=== PATIENT | female | born 1995 | race Hispanic/Latino ===

== ENCOUNTER 2021-01-27 09:35 | Outpatient (CLI) | payer BC, OTHER ==
[2021-01-27 20:11] LABS: SARS-CoV-2 PCR by NAA Not Detected (NotDetected)
== END 2021-01-27 09:36 | disposition home or self-care (01) ==
LOC: CSHLAB 09:35
PROVIDERS: ATTEND Obstetrics & Gynecology
DX: Z20.822 Contact with and (suspected) exposure to COVID-19 (principal)
CPT/HCPCS: 87635; U0003; U0005

== ENCOUNTER 2021-01-31 05:06 | Inpatient (IN) | payer BC, OTHER ==
[2021-01-31] MEDS ORDERED: Famotidine/PF 20 mg/2ml Vial SLOW IVP PRN (05:10)
[2021-01-31] MEDS ORDERED: Butorphanol Tartrate 1 MG/ML VIAL SLOW IVP PRN (05:10)
[2021-01-31] MEDS ORDERED: Bicitra 30 ML UDCUP PO PRN (05:10)
[2021-01-31] MEDS ORDERED: Ondansetron PF 4 MG/2 ML Vial IVP PRN ×3 (05:10→21:46)
[2021-01-31] MEDS ORDERED: Promethazine HCl 25 MG/ML VIAL IM PRN ×3 (05:10→21:46)
[2021-01-31] MEDS ORDERED: CEFAZOLIN 2 GM in Premix Bag 1 BAG IVPB SCH (05:10)
[2021-01-31] MEDS ORDERED: hydrALAZINE 20 MG/ML VIAL SLOW IVP PRN ×2 (05:10→21:46)
[2021-01-31] MEDS ORDERED: Lactated Ringer's 1,000 ML IV SCH (05:10)
[2021-01-31 05:36] VITALS: BMI 47.8
[2021-01-31] MEDS: Lactated Ringer's 1,000 ML IV SCH ×2 (05:45→09:14)
[2021-01-31 06:02] LABS: Hemoglobin 11.7 g/dL (12.0-15.5); Mean Corpuscular HGB CONC 33.3 g/dL (32.0-36.0); Mean Corpuscular Hemoglobin 27.1 pg (27.0-33.0); Mean Corpuscular Volume 81.3 fl (81.6-98.3); Platelet Count 304 10x3/uL (150-450); RBC Distribution Width 14.4 % (11.5-14.5); Red Blood Cell (RBC) Count 4.32 10x6/uL (3.90-5.03); White Blood Cell (WBC) Count 8.4 10x3/uL (3.5-10.5)
[2021-01-31 06:40] LABS: Hep B Surf Ag Non-Reactive S/CO (NonReactive); Syphilis Antibody Nonreactive (Nonreactive); Syphilis Antibody Index 0.05 S/CO (<1.00 Non-Reactive)
[2021-01-31 06:43] LABS: HBSAg Index 0.16 S/CO (0-0.99)
[2021-01-31] MEDS ORDERED: Penicillin G Potassium 5 MILL.UNITS VIAL ONE (07:31)
[2021-01-31] MEDS ORDERED: NS w/ Oxytocin 30 units 500 ML ONE (07:31)
[2021-01-31] MEDS ORDERED: Ibuprofen 800 MG TAB PO PRN (07:32)
[2021-01-31] MEDS ORDERED: HYDROcodone/Acetaminophen 5/325 mg Tablet PO PRN ×4 (07:32→21:46)
[2021-01-31] MEDS ORDERED: Lidocaine 1% (PF) 30 ML VIAL SC PRN (07:32)
[2021-01-31] MEDS ORDERED: NS w/ Oxytocin 30 units 500 ML IVPB PRN (07:42)
[2021-01-31] MEDS ORDERED: Penicillin G Potassium 5 MILL.UNITS in Sodium Chloride 0.9% 100 ML IVPB SCH (07:45)
[2021-01-31] MEDS ORDERED: NS w/ Oxytocin 30 units 500 ML IVPB SCH (08:00)
[2021-01-31] MEDS ORDERED: Bupivacaine 0.25% HCL 30 ML VIAL ONE (08:00)
[2021-01-31] MEDS ORDERED: Fentanyl 4 mcg/Bup 0.1% Cadd 100 ML ONE (10:56)
[2021-01-31] MEDS: Penicillin G 2.5 MILL.units 2.5 MILL.UNITS in Premix Bag 1 BAG IVPB SCH ×2 (11:41→15:36)
[2021-01-31] MEDS ORDERED: diphenhydrAMINE 50 MG/ML VIAL IVP PRN (15:05)
[2021-01-31] MEDS ORDERED: Naloxone HCl 0.4 mg/ml Vial IVP PRN ×2 (15:05)
[2021-01-31] MEDS ORDERED: Lactated Ringer's 500 ML IV PRN (15:05)
[2021-01-31] MEDS ORDERED: Acetaminophen 325 MG TAB PO PRN (15:05)
[2021-01-31] MEDS ORDERED: Communication Order-Pharmacy FS SCH (15:15)
[2021-01-31] MEDS ORDERED: Fentanyl 4 mcg/Bupivacaine 0.1% Cassette 100 ML EPIDURAL SCH (15:15)
[2021-01-31] MEDS ORDERED: Hydrocerin (Eucerin) Cream 120 gm Jar TOP PRN (15:50)
[2021-01-31] MEDS ORDERED: ePHEDrine Sulfate 50 MG/10 ML VIAL SLOW IVP PRN (15:51)
[2021-01-31] MEDS ORDERED: Lanolin Ointment 7 GM TUBE TOP PRN (21:46)
[2021-01-31] MEDS ORDERED: Preparation H Ointment 28 GM TUBE PR PRN (21:46)
[2021-01-31] MEDS ORDERED: Milk Of Magnesia 30 ML UDCUP PO PRN (21:46)
[2021-01-31] MEDS ORDERED: Benzocaine-Menthol 82.5 ML CAN TOP PRN (21:46)
[2021-01-31] MEDS ORDERED: Bisacodyl 10 MG SUPP PR PRN (21:46)
[2021-01-31] MEDS ORDERED: Zolpidem Tartrate 5 MG TAB PO PRN (21:46)
[2021-01-31] MEDS ORDERED: diphenhydrAMINE 25 MG CAP PO PRN (21:46)
[2021-01-31] MEDS ORDERED: NS w/ Oxytocin 30 units 500 ML IV SCH (22:00)
[2021-01-31] MEDS: Ibuprofen 800 MG TAB PO SCH (23:10)
[2021-01-31] MEDS: Docusate Calcium (SURFAK) 240 MG CAP PO SCH (23:11)
[2021-02-01] MEDS: Lactated Ringer's 1,000 ML IV SCH (02:34)
[2021-02-01] MEDS: Penicillin G 2.5 MILL.units 2.5 MILL.UNITS in Premix Bag 1 BAG IVPB SCH (02:34)
[2021-02-01] MEDS: Ibuprofen 800 MG TAB PO SCH ×2 (06:35→13:50)
[2021-02-01] MEDS ORDERED: Measles/Mumps/Rubella 10 MCG/0.5 ML VIAL SC ONE (09:00)
[2021-02-01] MEDS ORDERED: Prenatal Vitamin 1 TAB PO SCH ×2 (09:00)
[2021-02-01] MEDS ORDERED: Adacel (T-DAP) 0.5 ML SYRINGE IM ONE (09:00)
[2021-02-01] MEDS: Docusate Calcium (SURFAK) 240 MG CAP PO SCH (09:13)
[2021-02-01 17:22] VITALS: BP 129/73; TEMP 97.3
== END 2021-02-01 20:00 | disposition home or self-care (01) | DRG 806 ==
LOC: CSHLD 05:06 → CSHPP 22:00
PROVIDERS: ADMIT Obstetrics & Gynecology; ATTEND Obstetrics & Gynecology
PROC: 10E0XZZ Delivery of Products of Conception, External Approach (ICD-10-PCS; principal; 2021-01-31)
PROC: 4A0HXCZ Measurement of Products of Conception, Cardiac Rate, External Approach (ICD-10-PCS; 2021-01-31)
DX: O32.1XX0 Maternal care for breech presentation, not applicable or unspecified (principal); O98.82 Other maternal infectious and parasitic diseases complicating childbirth; Z37.0 Single live birth; Z3A.39 39 weeks gestation of pregnancy; B95.1 Streptococcus, group B, as the cause of diseases classified elsewhere
CPT/HCPCS: 36415; 51702; 85027; 86780; 86850; 86900; 86901; 87340; J2540; J2590; J3490; S0020

== ENCOUNTER 2021-02-10 20:08 | Inpatient (IN) | payer OTHER ==
[2021-02-10 21:22] LABS: Hemoglobin 12.4 g/dL (12.0-15.5); Mean Corpuscular HGB CONC 32.7 g/dL (32.0-36.0); Mean Corpuscular Volume 82.6 fl (81.6-98.3); Mean Platelet Volume 10.2 fl (7.4-10.4); Platelet Count 391 10x3/uL (150-450); Red Blood Cell (RBC) Count 4.59 10x6/uL (3.90-5.03); White Blood Cell (WBC) Count 20.6 10x3/uL (3.5-10.5)
[2021-02-10 21:37] LABS: ALT (SGPT) 27 U/L (8-55); AST (SGOT) 20 U/L (5-34); Albumin 3.7 g/dL (3.5-5.0); Alkaline Phosphatase 94 U/L (40-110); Anion Gap 16 mmol/L (10-20); BUN (Urea Nitrogen) 8 mg/dL (7.0-18.7); Bilirubin, Total 0.6 mg/dL (0.2-1.2); Calc. Creatinine Clearance 0 mL/min (70-130); Calcium 8.8 mg/dL (7.8-10.44); Carbon Dioxide 17 mmol/L (22-29); Chloride 105 mmol/L (98-107); Globulin 3.9 g/dL (2.4-3.5); Glucose 129 mg/dL (70-105); Potassium 3.3 mmol/L (3.5-5.1); Protein, Total 7.6 g/dL (6.0-8.3); Sodium 135 mmol/L (136-145)
[2021-02-10 21:40] LABS: Band 10 % (5-11); Lymphocytes 3 % (21-51); Monocytes 7 % (0-10); Neutrophil 77 % (42-75); Reactive Lymphocytes 3 % (0-10)
[2021-02-10 21:42] LABS: MDiff Complete? YES; Manual Diff?? YES
[2021-02-10] MEDS ORDERED: Acetaminophen 500 MG TAB ONE (21:42)
[2021-02-10 21:43] LABS: Platelet Morphology Comment Appears Adequate
[2021-02-10] MEDS ORDERED: Cefepime 2 GM VIAL ONE (21:43)
[2021-02-10 21:44] LABS: Bilirubin Neg (Negative); Blood, Urine 150 (Negative); Clarity Clear (Clear); Glucose, Urine (Dipstick) Normal (Negative); Ketone, Urine Negative (Negative); Leukocyte 25 (Negative); Nitrite Negative (Negative); Protein, Urine (Dipstick) 15 mg/dl (Neg-Trace); Specific Gravity, Urine 1.015 (1.002-1.036)
[2021-02-10] MEDS ORDERED: Acetaminophen 325 MG TAB ONE (21:55)
[2021-02-10 21:57] LABS: Bacteria/HPF 2+ HPF (None Seen); Mucous/LPF Rare LPF (<2+); RBC/HPF 0-3 HPF (0-3); WBC/HPF 0-3 HPF (0-3)
[2021-02-10 22:29] LABS: SARS-CoV-2 NAA Rapid Test Not Detected (NotDetected)
[2021-02-10 23:57] LABS: Lactic Acid 0.8 mmol/L (0.5-2.2)
[2021-02-11] MEDS ORDERED: Senokot S 8.6-50 MG TAB PO PRN (00:11)
[2021-02-11] MEDS ORDERED: Ondansetron ODT 4 MG TAB PO PRN (00:11)
[2021-02-11] MEDS ORDERED: Acetaminophen 325 MG TAB PO PRN (00:11)
[2021-02-11] MEDS ORDERED: Gentamicin 500 MG in Sodium Chloride 0.9% 100 ML IVPB SCH (00:15)
[2021-02-11] MEDS ORDERED: Potassium Chloride 20 MEQ TAB PO SCH (01:30)
[2021-02-11] MEDS ORDERED: Ketorolac Tromethamine 15 MG/ML VIAL ONE (02:22)
[2021-02-11] MEDS: Lactated Ringer's 1,000 ML IV SCH ×3 (03:17→18:31)
[2021-02-11 04:28] VITALS: BMI 44.5
[2021-02-11] MEDS: Ampicillin 2 GM in Sodium Chloride 0.9% 100 ML IVPB SCH ×4 (04:39→23:51)
[2021-02-11] MEDS ORDERED: Lactated Ringer's 1,000 ML IV SCH (08:00)
[2021-02-11 08:16] LABS: #Eosinphils 0.7 10x3/uL (0.0-0.5); #Monocytes 0.6 10x3/uL (0.0-1.1); #Neutrophils 12.6 10x3/uL (1.5-8.4); %Basophils 0.2 % (0.0-2.0); %Eosinophils 4.4 % (0.0-6.0); %Monocytes 4.2 % (0.0-10.0); %Neutrophils 84.6 % (40.0-75.0); Hemoglobin 11.5 g/dL (12.0-15.5); Mean Corpuscular HGB CONC 32.9 g/dL (32.0-36.0); Mean Corpuscular Hemoglobin 27.6 pg (27.0-33.0); Mean Corpuscular Volume 84.1 fl (81.6-98.3); Mean Platelet Volume 10.2 fl (7.4-10.4); Platelet Count 349 10x3/uL (150-450); RBC Distribution Width 15.2 % (11.5-14.5); Red Blood Cell (RBC) Count 4.16 10x6/uL (3.90-5.03); White Blood Cell (WBC) Count 14.9 10x3/uL (3.5-10.5)
[2021-02-11] MEDS: Clindamycin/D5W 900 MG in Premix Bag 1 BAG IVPB SCH ×2 (08:31→16:31)
[2021-02-11] MEDS: Enoxaparin Sodium 40 MG/0.4 ML SYRINGE SC SCH (08:32)
[2021-02-11] MEDS: Ibuprofen 800 MG TAB PO PRN ×2 (08:36→18:32)
[2021-02-11 10:28] LABS: Bilirubin Neg (Negative); Blood, Urine 150 (Negative); Clarity Slightly Cloudy (Clear); Glucose, Urine (Dipstick) Normal (Negative); Ketone, Urine 5 mg/dL (Negative); Leukocyte 25 (Negative); Nitrite Negative (Negative); Protein, Urine (Dipstick) 30 mg/dl (Neg-Trace); Specific Gravity, Urine 1.015 (1.002-1.036)
[2021-02-11 10:30] LABS: Urine Culture Reflex No No
[2021-02-11 11:15] LABS: Bacteria/HPF 1+ HPF (None Seen)
[2021-02-12] MEDS: Lactated Ringer's 1,000 ML IV SCH ×3 (00:46→18:16)
[2021-02-12] MEDS: Clindamycin/D5W 900 MG in Premix Bag 1 BAG IVPB SCH ×4 (00:46→23:26)
[2021-02-12] MEDS: Ampicillin 2 GM in Sodium Chloride 0.9% 100 ML IVPB SCH ×3 (05:38→18:16)
[2021-02-12] MEDS: Ibuprofen 800 MG TAB PO PRN ×2 (09:05→23:34)
[2021-02-12] MEDS: Enoxaparin Sodium 40 MG/0.4 ML SYRINGE SC SCH (10:56)
[2021-02-12] MEDS ORDERED: Sodium Chloride 0.9% 100 ML ONE (12:15)
[2021-02-13] MEDS: Ampicillin 2 GM in Sodium Chloride 0.9% 100 ML IVPB SCH ×3 (00:13→12:08)
[2021-02-13] MEDS: Lactated Ringer's 1,000 ML IV SCH ×2 (00:44→07:54)
[2021-02-13] MEDS: Enoxaparin Sodium 40 MG/0.4 ML SYRINGE SC SCH (07:54)
[2021-02-13] MEDS: Clindamycin/D5W 900 MG in Premix Bag 1 BAG IVPB SCH ×2 (08:31→15:29)
[2021-02-13 12:01] VITALS: BP 114/64; TEMP 98.3
== END 2021-02-13 16:30 | disposition home or self-care (01) | DRG 776 ==
LOC: CSHERS 20:08 → CSHPP 02-11 01:16
PROVIDERS: ADMIT Obstetrics & Gynecology; ATTEND Obstetrics & Gynecology
DX: O85 Puerperal sepsis (principal); O86.12 Endometritis following delivery; Z20.822 Contact with and (suspected) exposure to COVID-19
CPT/HCPCS: 0240U; 71045; 74177; 76857; 80053; 80170; 81001; 81003; 81015; 83605; 83880; 84484; 85025; 85379; 87040; 87077; 87086; 93005; 93010; 96365; 96366; 96367; 96368; 96375; J0290; J0692; J1580; J1650; J1885; J3370; J3490